=== PATIENT | male | born 1935 | race Caucasian/White ===

== ENCOUNTER 2017-11-27 00:52 | Day surgery (SDC) | payer MEDICARE, OTHER ==
[~2017-11-27] VITALS: Ht 177.8 cm; Wt 92.5 kg
[~2017-11-27 00:52] MED LIST: LEVE750T48 PO; LISI-362 PO; LUTE1CAP PO; MULT1CAP59 PO; SIMV-54 PO
[2017-11-27 07:31] VITALS: BP 142/84
[2017-11-27] MEDS ORDERED: NORMOSOL R SOLN(*) 1000 ML BAG 1,000 ML IV PRN (07:50)
[2017-11-27] MEDS ORDERED: LIDOCAINE/SOD BICARB 8.4% SYR ID ONE (07:50)
[2017-11-27 09:48] VITALS: BP 97/59
--- NOTE | 2017-11-27 09:53 | Short(Outpt) Discharge Summary ---
Discharge Summary Reason for Hosp/Final Diag: (1) Personal history of colonic polyps Status: Chronic Hospital Course & Plan: Colonoscopy with polypectomy x2 completed without problems. (2) Family history of colon cancer Departure Discharge to: Home, Self Care Discharge Instructions Home Meds Reported Medications Lutein/Zeaxanthin (LUTEIN-ZEAXANTHIN 25-5 MG SFGL) Unknown Strength Capsule, PO, CAPSULE 11/01/17 Multivitamin (MULTIVITAMINS) 1 Each Capsule, 1 EACH PO, CAPSULE 11/01/17 Levetiracetam (LEVETIRACETAM) 750 Mg Tablet, 750 MG PO BID, TAB 11/01/17 Lisinopril (LISINOPRIL) 10 Mg Tablet, 10 MG PO QDAY, TAB 11/01/17 Simvastatin (SIMVASTATIN) 40 Mg Tablet, 40 MG PO DAILY, TAB 11/01/17 Diet: Regular Activity: As Tolerated Special Instructions: Your colonoscopy was completed without problems and your prep was excellent (Good Job!!). I removed 2 polyps from your colon and they were sent to pathology. My office will call you in the next week or so and let you know what the polyps are but, in any case, I recommend that, health permitting, you have another colonoscopy in 5 years due to your history of polyps and your family history of colon cancer. MARY COUGHLIN MD Nov 27, 2017 09:53
[2017-11-27 10:01] VITALS: BP 107/72
[2017-11-27 10:21] VITALS: BP 112/73
[2017-11-27 10:35] VITALS: BP 125/72
[2017-11-27 10:36] VITALS: BP 124/84
== END 2017-11-27 10:45 | disposition home or self-care (01) ==
LOC: OR 00:52
PROVIDERS: ATTEND Surgery
DX: Z12.11 Encounter for screening for malignant neoplasm of colon (principal); K63.5 Polyp of colon
CPT/HCPCS: 88305